=== PATIENT | female | born 1960 | race Caucasian/White ===

== ENCOUNTER 2021-08-09 10:15 | Emergency (ER) | payer OTHER ==
[2021-08-09 11:47] LABS: BASOPHIL 0.3 % (0-2); EOSINOPHIL 1.3 % (0-5); HCT 40.4 % (37.0-47.0); HGB 13.8 g/dl (12.5-16.0); LYMPHOCYTE 12.8 % (15-48); MCH 31.4 pg (25.0-31.0); MCHC 34.2 g/dL (32.0-36.0); MCV 91.8 fL (78.0-100.0); MONOCYTE 4.7 % (0-12); NEUTROPHIL 80.5 % (41-80); NRBC 0; PLT 325 K/uL (150-400); RDW 12.1 % (11.5-14.0); WBC 10.6 K/uL (4.0-10.5)
[2021-08-09 11:56] LABS: ALBUMIN 3.8 g/dL (3.4-5.0); BILIRUBIN - TOTAL 0.5 mg/dL (0.2-1.0); BUN/CREAT RATIO (CALC) 15.1 RATIO; CREATININE 0.93 mg/dL (0.51-0.95); GLOBULIN (CALCULATION) 3.7 g/dL; POTASSIUM 3.5 mmol/L (3.5-5.1); TOTAL PROTEIN 7.5 g/dL (6.4-8.2)
[2021-08-09 13:32] LABS: BILIRUBIN NEGATIVE (NEGATIVE); BLOOD NEGATIVE Ery/uL (NEGATIVE); CLARITY CLEAR (CLEAR); COLOR YELLOW (YELLOW); GLUCOSE (U) NORMAL (NORMAL); LEUKOCYTES NEGATIVE Leu/uL (NEGATIVE); NITRITE NEGATIVE (NEGATIVE); PROTEIN NEGATIVE (NEGATIVE); UROBILINOGEN 0.2 mg/dL (0.2-1.0); pH 6.5 (5.0-9.0)
[2021-08-09 13:33] LABS: AMPHETAMINES NEGATIVE (NEGATIVE); BARBITURATES NEGATIVE (NEGATIVE); ECSTASY (MDMA) NEGATIVE (NEGATIVE); MARIJUANA (THC) POSITIVE (NEGATIVE); METHADONE NEGATIVE (NEGATIVE); OPIATES NEGATIVE (NEGATIVE); OXYCODONE NEGATIVE (NEGATIVE)
[2021-08-10] MEDS ORDERED: PLAVIX75 M1 PO (15:16)
[2021-08-10] MEDS ORDERED: LIPITOR20 MG PO (15:16)
== END 2021-08-09 15:21 | disposition home or self-care (01) ==
LOC: FER 10:15
PROVIDERS: Emergency Medicine
DX: G45.9 Transient cerebral ischemic attack, unspecified (principal); I16.0 Hypertensive urgency; I10 Essential (primary) hypertension; J44.9 Chronic obstructive pulmonary disease, unspecified; F17.200 Nicotine dependence, unspecified, uncomplicated
CPT/HCPCS: 36415; 70450; 71275; 80053; 80305; 81003; 84484; 85025; 85379; 93005; A9579; J2060; J3490; J7030; Q9967; U0002